=== PATIENT | male | born 1995 | race Caucasian/White ===

== ENCOUNTER 2018-06-19 12:24 | Inpatient (IN) | payer BC, OTHER ==
[~2018-06-19] VITALS: Ht 167.6 cm; Wt 60.3 kg
[2018-06-19 15:00] VITALS: BP 129/77
[2018-06-19] MEDS ORDERED: ACETAMINOPHEN 325 MG TABLET PO PRN (15:45)
[2018-06-19] MEDS ORDERED: THIAMINE HCL 200 MG/2 ML VIAL IM ONE (15:45)
[2018-06-19] MEDS ORDERED: ONDANSETRON 4 MG/2 ML VIAL IM PRN (15:45)
[2018-06-19] MEDS ORDERED: BUPRENORPHINE HCL 2 MG TAB.SUBL SL PRN (15:45)
[2018-06-19] MEDS ORDERED: MIRALAX 17 GM POWD.PACK PO PRN (15:45)
[2018-06-19] MEDS ORDERED: ONDANSETRON ODT 4 MG TAB.RAPDIS SL PRN (15:45)
[2018-06-19] MEDS ORDERED: DICYCLOMINE HCL 20 MG TABLET PO PRN (15:45)
[2018-06-19] MEDS ORDERED: LORAZEPAM 1 MG TABLET PO PRN ×2 (15:45)
[2018-06-19] MEDS ORDERED: LOPERAMIDE HCL 2 MG CAPSULE PO PRN ×2 (15:45)
[2018-06-19] MEDS ORDERED: LORAZEPAM 2 MG/1 ML VIAL IM PRN (15:45)
[2018-06-19] MEDS ORDERED: IBUPROFEN 400 MG TABLET PO PRN (15:45)
[2018-06-19] MEDS ORDERED: diphenhydrAMINE 50 MG CAPSULE PO PRN (15:45)
[2018-06-19] MEDS ORDERED: MAGNESIUM HYDROXIDE 30 ML LIQUID UDC PO PRN (15:45)
[2018-06-19] MEDS ORDERED: MAG HYDROX/AL HYDROX/SIMETH 30 ML LIQUID UDC PO PRN (15:45)
[2018-06-19 17:01] VITALS: BP 129/75
[2018-06-19 17:16] LABS: *AMPHETAMINE, URINE POSITIVE (NEGATIVE); *BARBITURATE, URINE NEGATIVE (NEGATIVE); *CANNABINOID, URINE POSITIVE (NEGATIVE); *COCCAINE, URINE NEGATIVE (NEGATIVE); *OPIATE, URINE POSITIVE (NEGATIVE); *PHENCYCLIDINE SCREEN,URINE NEGATIVE (NEGATIVE)
[2018-06-19 18:26] LABS: BASOPHILS % (AUTO) 0.8 % (0.0-2.0); EOSINOPHILS # (AUTO) 0.4 K/uL (0.0-0.7); EOSINOPHILS % (AUTO) 6.7 % (0.0-7.0); HEMATOCRIT 44.2 % (36.7-47.1); HEMOGLOBIN 14.9 g/dL (12.5-16.3); LYMPHOCYTES # (AUTO) 1.5 K/uL (20.0-40.0); LYMPHOCYTES % (AUTO) 27.4 % (20.5-51.5); MEAN CORPUSCULAR HEMOGLOBIN 28.3 uug (23.8-33.4); MEAN CORPUSCULAR HGB CONC 34 g/dL (32.5-36.3); MEAN CORPUSCULAR VOLUME 84.1 fL (73.0-96.2); MONOCYTES # (AUTO) 0.6 K/uL (2.0-10.0); MONOCYTES % (AUTO) 10.4 % (0.0-11.0); NEUTROPHILS % (AUTO) 54.7 % (38.5-71.5); PLATELET COUNT (AUTO) 255 K/uL (152-348); RED BLOOD CELL COUNT(AUTO) 5.25 MIL/uL (4.06-5.63); WHITE BLOOD COUNT (AUTO) 5.5 K/uL (3.6-10.2)
[2018-06-19 18:50] LABS: ETHANOL < 3 MG/DL (0-0)
[2018-06-19 18:55] LABS: ALANINE AMINOTRANSFERASE 47 U/L (16-63); ALKALINE PHOSPHATASE 50 U/L (50-136); AMYLASE 46 U/L (25-115); ASPARTATE AMINOTRANSFERASE 20 U/L (15-37); BILIRUBIN,TOTAL 0.5 mg/dL (0.2-1.0); CARBON DIOXIDE 28 mmol/L (21-32); CHLORIDE 101 mmol/L (98-107); GLUCOSE 101 mg/dL (74-106); LIPASE 104 U/L (73-393); MAGNESIUM 1.9 mg/dL (1.8-2.4); POTASSIUM 3.8 mmol/L (3.5-5.1); TOTAL PROTEIN, SERUM 7.5 g/dL (6.4-8.2); UREA NITROGEN, BLOOD 16 mg/dL (7-18)
[2018-06-19] MEDS ORDERED: QUET100T PO (19:35)
[2018-06-19 19:40] VITALS: BP 133/93
[2018-06-19] MEDS ORDERED: QUETIAPINE FUMARATE 100 MG TABLET PO SCH (21:00)
[2018-06-19 21:45] VITALS: BP 150/100
[2018-06-19] MEDS: CLONIDINE HCL 0.1 MG TABLET PO PRN (21:58)
[2018-06-19] MEDS: QUETIAPINE FUMARATE 100 MG TABLET PO SCH (21:58)
[2018-06-19] MEDS: METHOCARBAMOL 750 MG TABLET PO PRN (21:58)
[2018-06-19] MEDS ORDERED: GABAPENTIN 300 MG CAPSULE PO SCH (22:00)
[2018-06-19 23:03] VITALS: BP 147/97
[2018-06-20] VITALS (7 sets, daily range): BP systolic 111–157; BP diastolic 54–112
[2018-06-20] MEDS: LORAZEPAM 1 MG TABLET PO SCH ×4 (09:00→20:20)
[2018-06-20] MEDS ORDERED: TUBERCULIN,PURIF.PROT.DERIV. 5 TU/0.1 ML TEST ID ONE (09:00)
[2018-06-20] MEDS ORDERED: 5 DAY TAPER OF LORAZEPAM -SERENITY PROTOCOL PO PRN (09:00)
[2018-06-20] MEDS: GABAPENTIN 400 MG CAPSULE PO SCH ×3 (09:00→16:25)
[2018-06-20] MEDS ORDERED: 5 DAY TAPER BUPRENORPHINE -SERENITY PROTOCOL SL PRN (09:00)
[2018-06-20] MEDS: MULTIVITAMINS,THERAPEUTIC TABLET PO SCH (09:00)
[2018-06-20] MEDS: BUPRENORPHINE HCL 2 MG TAB.SUBL SL SCH ×4 (09:01→20:20)
[2018-06-20] MEDS: CLONIDINE HCL 0.1 MG TABLET PO PRN ×2 (16:35→23:15)
[2018-06-20] MEDS ORDERED: QUETIAPINE FUMARATE 100 MG TABLET PO SCH (21:00)
[2018-06-20] MEDS: QUETIAPINE FUMARATE 100 MG TABLET PO SCH (21:29)
[2018-06-21] VITALS (8 sets, daily range): BP systolic 109–161; BP diastolic 61–113
[2018-06-21] MEDS ORDERED: METOPROLOL TARTRATE 25 MG TABLET PO ONE (00:30)
[2018-06-21] MEDS: MULTIVITAMINS,THERAPEUTIC TABLET PO SCH (08:52)
[2018-06-21] MEDS: GABAPENTIN 400 MG CAPSULE PO SCH ×3 (08:53→16:33)
[2018-06-21] MEDS: LORAZEPAM 1 MG TABLET PO SCH ×3 (08:53→20:04)
[2018-06-21] MEDS: BUPRENORPHINE HCL 2 MG TAB.SUBL SL SCH ×3 (08:54→20:05)
[2018-06-21 10:06] LABS: HEPATITIS B SURFACE AG Negative (Negative)
[2018-06-21] MEDS: CLONIDINE HCL 0.1 MG TABLET PO PRN ×2 (12:35→20:05)
[2018-06-21] MEDS: IBUPROFEN 600 MG TABLET PO PRN (14:11)
[2018-06-21] MEDS: METHOCARBAMOL 750 MG TABLET PO PRN (14:11)
[2018-06-21] MEDS: QUETIAPINE FUMARATE 100 MG TABLET PO SCH (20:05)
[2018-06-22] VITALS: BP 132/89
[2018-06-22 04:00] VITALS: BP 142/93
[2018-06-22 08:00] VITALS: BP 142/93
[2018-06-22] MEDS: MULTIVITAMINS,THERAPEUTIC TABLET PO SCH (08:50)
[2018-06-22] MEDS: CLONIDINE HCL 0.1 MG TABLET PO PRN ×2 (08:51→22:09)
[2018-06-22] MEDS: LORAZEPAM 1 MG TABLET PO SCH ×4 (08:51→20:39)
[2018-06-22] MEDS: GABAPENTIN 400 MG CAPSULE PO SCH ×3 (08:51→16:34)
[2018-06-22] MEDS ORDERED: BUPRENORPHINE HCL 2 MG TAB.SUBL SL SCH (09:00)
[2018-06-22 12:00] VITALS: BP 108/65
[2018-06-22] MEDS: BUPRENORPHINE HCL 2 MG TAB.SUBL SL SCH ×2 (15:28→20:39)
[2018-06-22 16:00] VITALS: BP 139/81
[2018-06-22 20:00] VITALS: BP 152/89
[2018-06-22] MEDS: IBUPROFEN 600 MG TABLET PO PRN (20:44)
[2018-06-22] MEDS: QUETIAPINE FUMARATE 100 MG TABLET PO SCH (22:09)
[2018-06-23] VITALS: BP 119/63
[2018-06-23 08:30] VITALS: BP 122/80
[2018-06-23] MEDS: MULTIVITAMINS,THERAPEUTIC TABLET PO SCH (09:11)
[2018-06-23] MEDS: LORAZEPAM 1 MG TABLET PO SCH ×3 (09:11→20:46)
[2018-06-23] MEDS: GABAPENTIN 400 MG CAPSULE PO SCH ×3 (09:11→17:47)
[2018-06-23] MEDS: BUPRENORPHINE HCL 2 MG TAB.SUBL SL SCH ×3 (09:12→20:46)
[2018-06-23 12:53] VITALS: BP 148/90
[2018-06-23] MEDS: BACLOFEN 10 MG TABLET PO PRN (14:37)
[2018-06-23 16:30] VITALS: BP 148/90
[2018-06-23] MEDS: CLONIDINE HCL 0.1 MG TABLET PO PRN (17:54)
[2018-06-23 20:00] VITALS: BP 154/102
[2018-06-23] MEDS ORDERED: hydrALAZINE HCL 10 MG TABLET PO PRN (20:15)
[2018-06-23] MEDS ORDERED: hydrALAZINE HCL 25 MG TABLET PO ONE (20:15)
[2018-06-23] MEDS: QUETIAPINE FUMARATE 100 MG TABLET PO SCH ×2 (20:46→20:48)
[2018-06-24] VITALS: BP 139/93
[2018-06-24 04:00] VITALS: BP 142/94
[2018-06-24 08:04] VITALS: BP 106/66
[2018-06-24] MEDS ORDERED: BUPRENORPHINE HCL 2 MG TAB.SUBL SL SCH (09:00)
[2018-06-24] MEDS: MULTIVITAMINS,THERAPEUTIC TABLET PO SCH (09:32)
[2018-06-24] MEDS: LORAZEPAM 1 MG TABLET PO SCH ×2 (09:32→21:47)
[2018-06-24] MEDS: GABAPENTIN 400 MG CAPSULE PO SCH ×3 (09:32→17:39)
[2018-06-24 12:30] VITALS: BP 158/102
[2018-06-24] MEDS ORDERED: hydrALAZINE HCL 10 MG TABLET PO ONE (15:00)
[2018-06-24] MEDS: CLONIDINE HCL 0.1 MG TABLET PO PRN (15:26)
[2018-06-24 17:11] VITALS: BP 160/106
[2018-06-24] MEDS: LISINOPRIL 10 MG TABLET PO SCH (17:39)
[2018-06-24 20:14] VITALS: BP 106/77
[2018-06-24] MEDS ORDERED: BUPRENORPHINE HCL 2 MG TAB.SUBL SL ONE (21:00)
[2018-06-24] MEDS: QUETIAPINE FUMARATE 100 MG TABLET PO SCH (21:47)
[2018-06-25 08:00] VITALS: BP 107/51
[2018-06-25] MEDS: GABAPENTIN 400 MG CAPSULE PO SCH ×3 (09:17→17:39)
[2018-06-25] MEDS: LISINOPRIL 10 MG TABLET PO SCH (09:18)
[2018-06-25] MEDS: MULTIVITAMINS,THERAPEUTIC TABLET PO SCH (09:18)
[2018-06-25 12:00] VITALS: BP 140/100
[2018-06-25] MEDS: CLONIDINE HCL 0.1 MG TABLET PO PRN ×2 (12:01→22:43)
[2018-06-25] MEDS: IBUPROFEN 600 MG TABLET PO PRN (12:01)
[2018-06-25] MEDS: BACLOFEN 10 MG TABLET PO PRN (12:01)
[2018-06-25 16:00] VITALS: BP 132/82
[2018-06-25 20:11] VITALS: BP 148/98
[2018-06-25] MEDS: METHOCARBAMOL 750 MG TABLET PO PRN (22:42)
[2018-06-25] MEDS: QUETIAPINE FUMARATE 100 MG TABLET PO SCH (22:43)
[2018-06-25] MEDS ORDERED: GABA-536 PO (23:16)
[2018-06-25] MEDS ORDERED: METH-406 PO (23:16)
[2018-06-25] MEDS ORDERED: HYDR-4075 PO (23:16)
[2018-06-25] MEDS ORDERED: CLON0.1T14 PO (23:16)
[2018-06-25] MEDS ORDERED: BACL10TA PO (23:16)
[2018-06-25] MEDS ORDERED: LISI10TA5 PO (23:16)
[2018-06-26 08:00] VITALS: BP 100/62
[2018-06-26] MEDS: IBUPROFEN 600 MG TABLET PO PRN (08:17)
[2018-06-26] MEDS: GABAPENTIN 400 MG CAPSULE PO SCH (08:17)
[2018-06-26] MEDS: MULTIVITAMINS,THERAPEUTIC TABLET PO SCH (08:17)
[2018-06-26 08:18] VITALS: BP 100/62
[2018-06-26] MEDS: LISINOPRIL 10 MG TABLET PO SCH (08:18)
== END 2018-06-26 09:30 | disposition home or self-care (01) | DRG 895 ==
LOC: SRC 14:48
PROVIDERS: ADMIT Family Medicine Addiction Medicine; ATTEND Family Medicine Addiction Medicine
PROC: HZ2ZZZZ Detoxification Services for Substance Abuse Treatment (ICD-10-PCS; principal; 2018-06-19)
PROC: HZ41ZZZ Group Counseling for Substance Abuse Treatment, Behavioral (ICD-10-PCS; 2018-06-20)
PROC: HZ31ZZZ Individual Counseling for Substance Abuse Treatment, Behavioral (ICD-10-PCS; 2018-06-22)
DX: F10.230 Alcohol dependence with withdrawal, uncomplicated (principal); F15.20 Other stimulant dependence, uncomplicated; F11.23 Opioid dependence with withdrawal; Y90.9 Presence of alcohol in blood, level not specified; B19.20 Unspecified viral hepatitis C without hepatic coma; Z59.0 Homelessness; Z65.3 Problems related to other legal circumstances; F17.210 Nicotine dependence, cigarettes, uncomplicated; F39 Unspecified mood [affective] disorder; I10 Essential (primary) hypertension
CPT/HCPCS: 36415; 70030-TC; 80307; 80324; 80349; 80361; 83690; 83735; 85025; 86580; 86592; 86705; 86803; 87340; 87806; 93005; A4663; G0480; J3411; Q0162